=== PATIENT | female | born 1980 | race African-American/Black ===

== ENCOUNTER 2018-12-13 22:14 | Emergency (ER) | payer BC ==
[~2018-12-13] VITALS: Ht 165.1 cm; Wt 74.8 kg
[2018-12-14] MEDS ORDERED: IBUPROFEN 800800 MG PO (00:03)
[2018-12-14] MEDS ORDERED: VALIUM5 MG PO (00:03)
[2018-12-14 00:24] VITALS: BP 145/96
== END 2018-12-14 00:24 | disposition home or self-care (01) ==
LOC: M.ERS 22:14
DX: S13.8XXA Sprain of joints and ligaments of other parts of neck, initial encounter (principal); S40.011A Contusion of right shoulder, initial encounter; Z88.5 Allergy status to narcotic agent; Z88.8 Allergy status to other drugs, medicaments and biological substances; Z88.2 Allergy status to sulfonamides; Z98.890 Other specified postprocedural states; Z90.710 Acquired absence of both cervix and uterus; V89.2XXA Person injured in unspecified motor-vehicle accident, traffic, initial encounter; Y92.89 Other specified places as the place of occurrence of the external cause; Y93.89 Activity, other specified; Y99.8 Other external cause status